=== PATIENT | female | born 1990 | race Asian ===

== ENCOUNTER 2018-12-13 15:36 | Emergency (ER) | payer OTHER ==
[~2018-12-13] VITALS: Ht 165.1 cm; Wt 53.8 kg
--- NOTE | 2018-12-13 16:39 | NUR ---
FROM LOBBY TO ROOM AT THIS TIME
--- NOTE | 2018-12-13 16:45 | NUR ---
pt to CT
[2018-12-13 17:05] VITALS: BP 124/86
--- NOTE | 2018-12-13 17:05 | NUR ---
pt upright on gurney awake & calm, responds approp to staff, NAD, comfort measures provided, call light within reach.
--- NOTE | 2018-12-13 17:36 | NUR ---
Patient given discharge instructions and they have confirmed that they understand the instructions. Patient ambulatory with steady gait.
== END 2018-12-13 17:37 | disposition home or self-care (01) ==
LOC: ED 17:30
DX: S16.1XXA Strain of muscle, fascia and tendon at neck level, initial encounter (principal); S09.8XXA Other specified injuries of head, initial encounter; R51 Headache; W19.XXXA Unspecified fall, initial encounter; Y93.89 Activity, other specified; Y92.89 Other specified places as the place of occurrence of the external cause; Y99.8 Other external cause status
CPT/HCPCS: 70450; 72125; 99284